=== PATIENT | male | born 1945 | race Caucasian/White ===

== ENCOUNTER 2020-09-19 20:37 | Emergency (ER) | payer MEDICARE, OTHER ==
[2020-09-19 21:13] LABS: BASOPHIL 0.7 % (0-2); EOSINOPHIL 2.6 % (0-7); HCT 41.8 % (42.0-52.0); HGB 14.6 g/dl (13.2-18.0); LYMPHOCYTE 21.2 % (15-48); MCH 32.5 pg (25.0-31.0); MCHC 34.9 g/dL (32.0-36.0); MCV 93.1 fL (78.0-100.0); MPV 9.7 fL (6.0-9.5); NEUTROPHIL 63.2 % (41-80); NRBC 0; PLT 385 K/uL (150-400); RBC 4.49 M/uL (4.70-6.00); RDW 12.6 % (11.5-14.0); WBC 10.1 K/uL (4.0-10.5)
[2020-09-19 21:24] LABS: ALBUMIN 3.8 g/dL (3.4-5.0); BILIRUBIN - TOTAL 0.6 mg/dL (0.2-1.0); CREATININE 0.88 mg/dL (0.67-1.17); GLOBULIN (CALCULATION) 3.8 g/dL; POTASSIUM 4.1 mmol/L (3.5-5.1); TOTAL PROTEIN 7.6 g/dL (6.4-8.2)
== END 2020-09-20 00:04 | disposition home or self-care (01) ==
LOC: FER 20:37
PROVIDERS: Emergency Medicine
DX: R07.89 Other chest pain (principal); I10 Essential (primary) hypertension; Z87.891 Personal history of nicotine dependence; Z79.899 Other long term (current) drug therapy
CPT/HCPCS: 36415; 71045; 71275; 80053; 84484; 85025; 85379; 93005; Q9967

== ENCOUNTER 2021-05-28 18:27 | Emergency (ER) | payer MEDICARE, OTHER ==
[2021-05-28 19:03] LABS: BASOPHIL 0.4 % (0-2); EOSINOPHIL 2.1 % (0-7); HCT 42.9 % (42.0-52.0); HGB 14.9 g/dl (13.2-18.0); LYMPHOCYTE 19.2 % (15-48); MCH 32.3 pg (25.0-31.0); MCHC 34.7 g/dL (32.0-36.0); MCV 93.1 fL (78.0-100.0); MONOCYTE 10.5 % (0-12); MPV 9.5 fL (6.0-9.5); NEUTROPHIL 67.5 % (41-80); NRBC 0; PLT 304 K/uL (150-400); RBC 4.61 M/uL (4.70-6.00); RDW 12.9 % (11.5-14.0); WBC 10.3 K/uL (4.0-10.5)
[2021-05-28 19:34] LABS: ALBUMIN 3.8 g/dL (3.4-5.0); BILIRUBIN - TOTAL 1.1 mg/dL (0.2-1.0); BUN/CREAT RATIO (CALC) 11.5 RATIO; CREATININE 0.78 mg/dL (0.67-1.17); GLOBULIN (CALCULATION) 3.3 g/dL; POTASSIUM 4.2 mmol/L (3.5-5.1); TOTAL PROTEIN 7.1 g/dL (6.4-8.2)
== END 2021-05-28 22:09 | disposition home or self-care (01) ==
LOC: FER 18:27
PROVIDERS: Emergency Medicine
DX: R07.89 Other chest pain (principal); I10 Essential (primary) hypertension; I25.10 Atherosclerotic heart disease of native coronary artery without angina pectoris
CPT/HCPCS: 36415; 80053; 83690; 84484; 85025